=== PATIENT | male | born 1965 | race Caucasian/White ===

== ENCOUNTER → 2018-10-12 | Outpatient (CLI) | payer OTHER ==
[~2018-10-12] MED LIST: ADDERALL 10 MG10 MG PO; AMBIEN 10 MG TA10 MG PO; ATIVAN0.5 MG PO; AUGMENTIN 875-1 EACH PO; AUGMENTIN 875875 M1 PO; CELEBREX 200 M200 M1 PO; CELEXA20 MG PO; CELEXA40 MG PO; CITALOPRAM PO; ESKALITH300 MG PO; GLUCAGON EMERGEN1 MG IJ; LITHIUM PO; MORPHABOND ER30 MG PO; NORCO 10-325 T1 EACH PO; OXYIR5 MG; PERCOCET 5-3251 EACH PO; REQUIP 1 MG TABL1 M1 PO; SENNA PO; SEROQUEL 50 MG50 M1 NG; TRAMADOL 50 MG50 MG PO; TRAZODONE 150150 M1 PO; ZOFRAN4 MG
== END ==
LOC: NUC 09-23 11:28
DX: R13.14 Dysphagia, pharyngoesophageal phase (principal); K31.84 Gastroparesis; R14.0 Abdominal distension (gaseous)

== ENCOUNTER → 2020-08-29 | Outpatient (CLI) | payer BC ==
[~2020-08-29] VITALS: Ht 188 cm; Wt 129.3 kg
[~2020-08-29] MED LIST changes: +ADDERALL 20 MG20 MG PO; +DERMACINRX5000 UNIT PO; +MS CONTIN 60 MG60 MG PO; +OLANZAPINE2.5 MG PO; +PROZAC20 MG PO; +TOPAMAX50 MG PO
--- NOTE | ~2020-08-29 | HPC ---
[facility] [address] [place] [address] PAIN MANAGEMENT CONSULTATION Name: RAÚL JANE [facility] [id number] Admission: 08/29/20 Attend Phys: Anil Byrd MD Discharge: Date of : 63 Report #: [id number] CC: Lita Byrd DATE OF SERVICE: 08/29/2020 CHIEF COMPLAINT: Knife-like pain in the low back. 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 He has longstanding back pain that requires him to sleep in a recliner at night. He cannot lay flat or else he will get little to no sleep. Over the course of the last 20 years or so, he has been placed on opioids and the dose has been adjusted. At one time, he was taking short-acting hydrocodone, but his number of tablets per day got to the 5-[address] Perry transitioned him to long-acting opioids with which he has done exceptionally well over the last several years. He has been on MS extended release 60 mg b.i.d. and reports that with this, he can control his pain down to a level of 3/10. His pain is a continuous, steady, gnawing, sharp stabbing pain in the middle of his back. He has no leg symptoms whatsoever. He was seen in the pain clinic in the late , but has not had any prior injections. CURRENT MEDICINES: Include the MS ER 60 b.i.d., Prozac, olanzapine 2.5 at bedtime, tramadol 50 mg p.r.n., Adderall 20 mg b.i.d., Topamax 50 mg daily, vitamin D3 and Men's daily vitamins. ALLERGIES: None. PAST MEDICAL HISTORY: Remarkable for bipolar disorder. He was on lithium for many years, but has been transitioned to olanzapine, Prozac. He is much better on that medication. He takes Topamax to prevent migraines and this has also worked effectively for him. He has hypertension and a history of prior ablation of varicose veins, lap-band in 2011. Open reduction of finger digit in 1980. SOCIAL HISTORY: He is , works fulltime. Denies use of tobacco. Drinks alcohol on occasion less than 1 beverage per week. Opioid risk tool is completed by the patient. By his own score his total would be 9, which would put him in the high risk category. I questioned him about this. He has a family history of alcoholism and he felt that he too may have a problem, although he has not been drinking to excess since he was in his early 20s. At that point in time, he said he like to drink to get drunk and decided that was not a good idea, so he stopped doing that. He continues to drink alcohol responsibly and carefully, never exceeding excessive amounts and never getting drunk. He has never been at Alcoholics Anonymous and he has never been treated for any other substance abuse. We calculated his score as 6. This is for his family issues and his history of psychological disorder with depression and bipolar disease, which scores him 3 points. This does not mean that he should not be on opioids, but does put him at risk category higher than others. Impacted pain score is modest at 39/70. PHYSICAL EXAMINATION: GENERAL: He is a pleasant, alert, outgoing, friendly gentleman. He does not seem anxious or depressed today during a visit. VITAL SIGNS: His blood pressure is 156/73, heart rate 66, respirations 18, O2 sat 100%. His BMI is 36.6. HEENT: Normal. CHEST: Clear. CARDIAC: Rhythm is regular. MUSCULOSKELETAL: Examination of the spine is normal. He has good alignment. Good range of motion with no increase in pain. He is moderately obese. His gait is nonantalgic. Strength is normal throughout the upper and lower extremities. X-rays were reviewed, showed some mild degenerative changes throughout the thoracolumbar spine, but no significant spinal stenosis. I would say his degenerative changes are pretty consistent with age. There are some mild areas of stenosis and spondyloarthropathy that would be found in most his age and his size. IMPRESSION: Chronic back pain. He has now been on opioids at 120 morphine milligram equivalents per day for over 2 years. RECOMMENDATION: He is on a lot of polypharmacy and has a history of bipolar disorder. He is fairly well balanced right now and feels that he is doing okay. We did discuss the CDC guidelines. I think he should try to taper his opioids from 120 to 90 mg per day and he is open to that. That could be done at 45 mg of MS Contin b.i.d. and then I would work after 3-6 months if he is stable there and taper him further. We discussed 3 breakdowns and the CDC guidelines of 0-50, 50-90 MME and over the 90. He understands that for long-term use physicians and others will be more comfortable if he safely can lower his medications and balance with his others. I talked with him about the critical importance of safeguarding all medications, although he takes them responsibly and carefully. He must make sure that they are not available to others. We discussed the importance of sticking with one physician, signing an opioid agreement and filling all of his prescriptions in one pharmacy. I reviewed his prescription drug monitoring program information and there are no unexpected entries. In conclusion, I think that he could be continued on opioids at this time with an attempt to taper him slowly over the course of the next 6-12 months and he is open to that. By: 16 20 Anil Byrd MD /nt
[2020-08-29 14:46] VITALS: BP 156/73
--- NOTE | 2020-08-29 15:11 | NUR ---
Pain Clinic Assessment: 1. History of Osteoarthritis: KNEES History of Rheumatoid Arthritis: Not Applicable 2. Height: 6 ft. 2 in. 188.0 cm. Weight: 285.0 lb. oz. 129.276 kg. Patient's BMI: 36.6 3. Vital Signs: BP: 156/73 Pulse: 66 Resp: 16 Temp: 02 Sat: 100 ECG Mon: 4. Pain Intensity: 3 5. Fall Risk: Dizziness: N Needs help standing or walking: N Fallen in the last 3 months: N Fall risk comments: 6. Patient on Blood Thinner: None 7. History of Hypertension: N 8. Opioid Therapy greater than 6 weeks: Y Opiate Contract Signed: 9. Risk Assessment Tool Provided: HIGH-9 10. Functional Assessment Tool: 39/ 11. Recreational Drug Use: Never Drug Type: Tobacco Use: Never Smoker Tobacco Type: Amount or Packs/day: How Many Years: Alcohol Use: Yes Frequency: Monthly Quant: 2
== END ==
LOC: PAIN 06:46
PROVIDERS: ATTEND Anesthesiology Pain Medicine
DX: M54.5 Low back pain (principal); F11.20 Opioid dependence, uncomplicated

== ENCOUNTER → 2021-12-11 | Outpatient (CLI) | payer BC ==
[~2021-12-11] MED LIST changes: +TOPAMAX100 MG PO; +TOPROL XL25 MG PO
== END ==
LOC: NUC 08:46
PROVIDERS: ATTEND Family Medicine
DX: M51.36 Other intervertebral disc degeneration, lumbar region (principal)